=== PATIENT | female | born 1960 | race Caucasian/White ===

== ENCOUNTER → 2017-06-05 | Outpatient (CLI) | payer BC ==
--- NOTE | 2017-06-05 11:08 | CT ---
EXAMINATION TYPE: CT abdomen pelvis wo con DATE OF EXAM: 06/05/2017 HISTORY: Calculus of kidney per order. Kidney infection and stones for [address] DLP: 1094 mGycm. Automated Exposure Control for Dose Reduction was Utilized. TECHNIQUE: CT scan of the abdomen and pelvis is performed without oral or IV contrast. COMPARISON: CT abdomen and pelvis March 23, 2010 FINDINGS: Within the limitations of a non-contrast study, the following observations are made. LUNG BASES: No significant abnormality is appreciated. LIVER/GB: Cholecystectomy clips are redemonstrated. PANCREAS: No significant abnormality is seen. SPLEEN: No significant abnormality is seen. ADRENALS: No significant abnormality is seen. KIDNEYS: No renal stones or hydronephrosis is evident bilaterally. No intraluminal calculus in the bl adder is seen. BOWEL: No specific small or large bowel dilatation. Scattered colonic diverticula are seen. There is no CT evidence for acute diverticulitis. GENITAL ORGANS: Anteverted somewhat prominent uterus consistent with underlying fibroids is redemonst rated. LYMPH NODES: No greater than 1cm abdominal or pelvic lymph nodes are appreciated. There are slightly prominent but subcentimeter bilateral groin lymph nodes as well as similar findings along course of r ight iliac vessels. OSSEOUS STRUCTURES: There is dextroconvex scoliosis centered in the mid lumbar spine. There is multil evel spurring in the thoracolumbar spine. There is moderate joint space loss and spurring in both hip s. There is multilevel facet arthropathy in the lumbar spine. OTHER: No significant additional abnormality is seen. IMPRESSION: No renal stones or hydronephrosis is seen bilaterally. No significant acute finding is se en to account for patient's symptoms.
== END | disposition home or self-care (01) ==
LOC: RADCTMAIN 06:55
PROVIDERS: ATTEND Family Medicine
DX: N20.0 Calculus of kidney (principal); Z88.0 Allergy status to penicillin; Z88.8 Allergy status to other drugs, medicaments and biological substances
CPT/HCPCS: 74176

== ENCOUNTER → 2018-09-07 | Outpatient (CLI) | payer BC ==
--- NOTE | 2018-09-09 18:12 | MR ---
EXAMINATION TYPE: MR brain wo/w con DATE OF EXAM: 09/07/2018 COMPARISON: Brain MRI 09/08/2010 HISTORY: Abnormal involuntary movement, Headaches, Blurred vision TECHNIQUE: Multiplanar, multisequence images of the brain and brainstem is performed without and with IV contras t, utilizing 10 mL intravenous Gadavist . FINDINGS: Diffusion weighted images demonstrate no evidence of a recent infarct or other diffusion ab normality. There is no extra-axial fluid collection. Scattered periventricular, subcortical white ma tter signal hyperintensities are present on inversion recovery T2-weighted sequences within the left frontal parietal lobe, at least 3-5 new lesions compared to prior exam, single frontal lesion on axia l image 15 is stable. Largest lesion measures only 4 to 5 mm axial image 18. The ventricular system a nd cisternal spaces are normal in size and appearance. The brain volume is age appropriate. Midline structures demonstrate normal morphology. The craniocervical junction appears within normal limits. Post contrast images demonstrate no abnormal enhancement. The dural venous sinuses appear pa tent. The visualized sinuses are clear and the globes are intact. IMPRESSION: Nonspecific white matter demyelination, consider hypertension, vasculitis, migraine heada ches, multiple sclerosis in the appropriate clinical setting
--- NOTE | 2018-09-09 18:16 | MR ---
EXAMINATION TYPE: MR angio head wo con DATE OF EXAM: 09/07/2018 COMPARISON: MR brain same date HISTORY: Abnormal involuntary movement, Headaches, Blurred vision TECHNIQUE: Time of flight images focusing on the [place] were performed without contrast. Th ree-dimensional reconstructions on an alternate workstation FINDINGS: There is no evident embolus, aneurysm, or dissection. Anterior posterior circulation is pat ent. Vertebral arteries are codominant. IMPRESSION: Normal [place] MRA
== END | disposition home or self-care (01) ==
LOC: RADMRIMAIN 19:15
PROVIDERS: ATTEND Ophthalmology
DX: R51 Headache (principal); G37.8 Other specified demyelinating diseases of central nervous system; H53.8 Other visual disturbances; R25.9 Unspecified abnormal involuntary movements; Z88.0 Allergy status to penicillin
CPT/HCPCS: 82565; 70544; 70553; 36415; A9585

== ENCOUNTER → 2022-02-01 | Outpatient (CLI) | payer OTHER ==
--- NOTE | 2022-02-01 08:34 | US ---
EXAMINATION TYPE: US abdomen complete DATE OF EXAM: 02/01/2022 COMPARISON: NONE CLINICAL HISTORY: R19.06 EPIGASTRIC SWELLING, MASS OR LUMP. Epigastric Pain x 6 months, Hx of Cholecy stectomy and Appy EXAM MEASUREMENTS: Liver Length: 17.6 cm Gallbladder Wall: Surgically absent CBD: .5 cm Spleen: 10.5 cm Right Kidney: 9.1 x 5.1 x 5.8 cm Left Kidney: 10.1 x 6.2 x 6.0 cm Pancreas: Tail obscured by overlying bowel gas Liver: Heterogeneous, Increased attenuation Gallbladder: Surgically absent Evidence for sonographic Galvez's sign: No CBD: wnl, questionable debris Spleen: wnl Right Kidney: No hydronephrosis or masses seen Left Kidney: No hydronephrosis or masses seen Upper IVC: wnl Abd Aorta: wnl IMPRESSION: 1. Heterogeneous pattern to the liver is nonspecific be seen with hepatic steatosis, hepatocellular d isease or hepatitis correlate clinically. 2. Postcholecystectomy. There is questionable debris within the common bile duct. This could be kan elated with ERCP or MRCP as clinically warranted.
== END | disposition home or self-care (01) ==
LOC: RADUSWWP 07:01
PROVIDERS: ATTEND Family Medicine
DX: K76.0 Fatty (change of) liver, not elsewhere classified (principal); Z90.49 Acquired absence of other specified parts of digestive tract
CPT/HCPCS: 76700

== ENCOUNTER → 2022-02-09 | Outpatient (CLI) | payer OTHER ==
--- NOTE | 2022-02-09 22:42 | MR ---
EXAMINATION TYPE: MR MRCP DATE OF EXAM: 02/09/2022 COMPARISON: CT abdomen and pelvis 2020 and 2016. Recent ultrasound February 01, 2022. HISTORY: FATTY (CHANGE OF) LIVER, NOT ELSEWHERE, Abnormal U/s Standard multiplanar, multisequence MRI departmental protocol Multiplanar, multisequence images of the abdomen were acquired without contrast. Thin and thick slice MRCP imaging performed on the MRI scanner.. FINDINGS: Liver/gallbladder/pancreas/biliary system: Gallbladder remains surgically absent. There is diffuse si gnal dropout on in and out of phase imaging consistent with diffuse fatty infiltration. Stable slight ly Prominent right hepatic lobe. No concerning solid or cystic masses. Pancreas is normal in size wit hout solid or cystic masses. MRCP imaging shows no intrahepatic or extrahepatic biliary dilatation. N o filling defect defect or CBD stone. No pancreatic ductal dilatation is seen. Other: Lung bases remain clear. The spleen and both adrenal glands appear within normal limits. No co ncerning renal mass or hydronephrosis. No suspicious bowel dilatation. No intra-abdominal ascites. No AAA. Underlying dextroconvex scoliosis centered at L1-L2 level is redemonstrated. No abnormal intra- abdominal lymphadenopathy. IMPRESSION: Diffuse fatty infiltration of liver redemonstrated. No CBD stones or sludge.
== END | disposition home or self-care (01) ==
LOC: RADMRIMAIN 08:51
PROVIDERS: ATTEND Family Medicine
DX: K76.0 Fatty (change of) liver, not elsewhere classified (principal); R93.5 Abnormal findings on diagnostic imaging of other abdominal regions, including retroperitoneum
CPT/HCPCS: 74181